=== PATIENT | female | born 1935 ===

== ENCOUNTER 2017-02-13 11:25 | Emergency (ER) | payer MEDICARE, BC ==
[2017-02-13 11:40] VITALS: BP 126/62
--- NOTE | 2017-02-13 12:09 | UC ---
Dizzy HPI HPI Summary: Spent most of yesterday resting because of feeling unwell, with nausea and lightheadness. This morning, had about 10+ minutes of quivering sensation in her chest, but no associated chest pain or shortness of breath. History of past ND 15 months ago, with previous hx of a fib. In July, had cardiac arrest in the ER following oral dose of flecainide; had CPR for 2 minutes. Within the past month or so, she has had an event monitor, and labs to check thyroid function, but she does not know the results. Not on a diuretic and does not have a hx of hypokalemia. Has felt weak and off balance since her cardiac arrest. She did not do rehab following this. Past history of vertigo, but has no diplopia or vision change. - History Of Current Complaint Chief Complaint: UCGeneralIllness Stated Complaint: DIZZY,NAUSEA,QUIVER FELING IN CHEST Time Seen by Provider: 02/13/17 11:41 Hx Obtained From: Patient, Family/Transportation Officer - here with her Onset/Duration: Gradual Onset, Lasting Hours - hours of dizziness and lightheadeness, Worse Since - This morning, had about 10 minutes of "quivering" in her heart. Timing: Minutes Severity Initially: Moderate Severity Currently: None Character: Lightheaded, Weak, Dizzy Aggravating Factor(s): Exertion, Position Change, Supine To Erect Alleviating Factor(s): Rest, Lying Down Associated Signs And Symptoms: Positive: Palpitations, Unsteady Gait - for the past 6 months - Risk Factors Cardiac Risk Factors: Hypertension, Prior ND CVA Risk Factor: Atrial Fibrillation - on NOAC - Allergies/Home Medications Allergies/Adverse Reactions: Allergies Allergy/AdvReac Type Severity Reaction Status Date / Time Sulfa Drugs Allergy Intermediate Hives Verified 02/13/17 11:31 Flecainide Allergy See Comment Verified 02/13/17 11:31 NITROGLYCERINE Allergy Severe SYNCOPE Uncoded 02/13/17 11:31 PMH/Surg Hx/FS Hx/Imm Hx Cardiovascular History: Cardiac Disease, Myocardial Infarction, Atrial Fibrillation - Surgical History Surgical History: Yes Surgery Procedure, Year, and Place: GALL BLADDER REMOVAL, APPENDECTOMY. Cardiac cath 10/2015 - Family History Known Family History: Positive: Hypertension - Social History Occupation: Retired Lives: With Family Alcohol Use: None Substance Use Type: None Smoking Status (MU): Never Smoked Tobacco Review of Systems Constitutional: Fatigue, Other - off balance at times Skin: Negative Eyes: Negative ENT: Negative Respiratory: Shortness Of Breath - only with climibin a hill, not new Cardiovascular: Palpitations, Other - mild edema of the ankles off and on, no increase. Gastrointestinal: Nausea, Other - stools normal Genitourinary: Negative Motor: Weakness - feels off balance x months. Neurovascular: Negative Musculoskeletal: Arthralgia - occasional use of acetaminophen for aches and pains. Neurological: Negative Psychological: Negative All Other Systems Reviewed And Are Negative: Yes Physical Exam Triage Information Reviewed: Yes Appearance: Ill-Appearing - looks fatigued and chronically unwell, but not out of breath. Speaks easily. Alert and oriented. Vital Signs: Initial Vital Signs Temp 97.7 F 02/13/17 11:33 Pulse 63 02/13/17 11:33 Resp 16 02/13/17 11:33 BP 126/62 02/13/17 11:33 Pulse Ox 96 02/13/17 11:33 Eyes: Positive: Conjunctiva Clear ENT: Positive: Pharynx normal Dental Exam: Normal Neck: Positive: Supple, Nontender, No Lymphadenopathy, Other: - no carotid bruit Respiratory: Positive: Lungs clear, Normal breath sounds Cardiovascular: Positive: RRR - bradycardic, No Murmur, Other: - trace edema of ankles. Abdomen Description: Positive: Nontender, No Organomegaly, Soft Musculoskeletal: Positive: Other: - no pronator drift. Gait is mildly wide based. Neurological Exam: Other - CNII-XII normal. Psychological Exam: Normal Skin Exam: Other - sun blister on lower lip, 4 mm Diagnostics - EKG Cardiac Rate: Bradycardia Cardiac Rhythm: Sinus: Normal Ectopy: None ST Segment: Normal - possible LVH Dizzy Course/Dx - Course Course Of Treatment: observational. Will go to [facility] if symptoms continue today, or follow up with Dr. Still tomorrow. - Differential Dx/Diagnosis Differential Diagnosis/HQI/PQRI: Benign Paroxysmal Positional Vertigo, CVA, Dysrhythmia, Transient Ischemic Attack Provider Diagnoses: possibly symptomatic bradycardia Discharge - Discharge Plan Condition: Stable Disposition: HOME Patient Education Materials: Bradycardia (ED) Referrals: Violette Still MD [Primary Care Provider] - Additional Instructions: Your EKG today shows a normal sinus rhythm with a slow rate. There is no evidence of recurrent atrial fibrillation. As discussed, it is most likely that your medications might need adjusting, and you need to confirm that the results of your most recent thyroid testing in December were normal. I suggest a follow up with Dr. Still and your photoengraver to explore this further. You might benefit from physical therapy for strengthening.
== END 2017-02-13 12:24 | disposition home or self-care (01) ==
LOC: UCCORT 11:25
DX: R00.1 Bradycardia, unspecified (principal); R42 Dizziness and giddiness; R00.2 Palpitations; R26.81 Unsteadiness on feet; I25.2 Old myocardial infarction; I48.91 Unspecified atrial fibrillation; Z86.74 Personal history of sudden cardiac arrest; I10 Essential (primary) hypertension; Z88.2 Allergy status to sulfonamides
CPT/HCPCS: 93005; 99211; G0463

== ENCOUNTER 2017-10-08 13:11 | Emergency (ER) | payer MEDICARE, BC ==
[2017-10-08 14:05] VITALS: BP 108/65
--- NOTE | 2017-10-08 14:24 | UC ---
Respiratory Complaint HPI - HPI Summary HPI Summary: patient to urgent care with c/o cough and chest congestion for a few days---no fever chills or shortness of breath - History of Current Complaint Chief Complaint: UCRespiratory Stated Complaint: COUGH, CONGESTION Time Seen by Provider: 10/08/17 14:14 Hx Obtained From: Patient ?: No Onset/Duration: Gradual Onset, Lasting Days, Still Present Timing: Constant Severity Initially: Mild Severity Currently: Mild Pain Intensity: 0 Character: Cough: Productive - pink tinge in sputum (on xarelto) Aggravating Factors: Nothing Alleviating Factors: Nothing - Allergies/Home Medications Allergies/Adverse Reactions: Allergies Allergy/AdvReac Type Severity Reaction Status Date / Time flecainide Allergy Severe See Comment Verified 10/08/17 14:11 nitroglycerin Allergy Severe See Comment Verified 10/08/17 14:11 Sulfa (Sulfonamide Allergy Hives Verified 10/08/17 14:11 Antibiotics) Home Medications: Home Medications Acetaminophen 325 mg PO ONCE PRN 10/08/17 [History Confirmed 10/08/17] PMH/Surg Hx/FS Hx/Imm Hx Previously Healthy: No Cardiovascular History: Myocardial Infarction, Atrial Fibrillation - Surgical History Surgical History: Yes Surgery Procedure, Year, and Place: GALL BLADDER REMOVAL, APPENDECTOMY. Cardiac cath 10/2016 - Family History Known Family History: Positive: Hypertension - Social History Occupation: Retired Lives: With Family Alcohol Use: None Substance Use Type: None Smoking Status (MU): Never Smoked Tobacco Review of Systems Constitutional: Negative Skin: Negative Eyes: Negative ENT: Negative Respiratory: Cough Cardiovascular: Negative Gastrointestinal: Negative Genitourinary: Negative Motor: Negative Neurovascular: Negative Musculoskeletal: Negative Neurological: Negative Psychological: Negative Is Patient Immunocompromised?: No All Other Systems Reviewed And Are Negative: Yes Physical Exam Triage Information Reviewed: Yes Appearance: Well-Appearing, No Pain Distress, Well-Nourished Vital Signs: Initial Vital Signs Temp 99 F 10/08/17 13:58 Pulse 63 10/08/17 13:58 Resp 16 10/08/17 13:58 BP 108/65 10/08/17 13:58 Pulse Ox 97 10/08/17 13:58 Vital Signs Reviewed: Yes Eye Exam: Normal Eyes: Positive: Conjunctiva Clear ENT Exam: Normal ENT: Positive: Normal ENT inspection, Hearing grossly normal, Pharynx normal, TMs normal, Uvula midline. Negative: Nasal congestion, Trismus, Muffled voice, Hoarse voice, Sinus tenderness Dental Exam: Normal Neck exam: Normal Neck: Positive: Supple, Nontender, No Lymphadenopathy Respiratory Exam: Normal Respiratory: Positive: Chest non-tender, Lungs clear, No respiratory distress, No accessory muscle use, Wheezing - some expiratory Cardiovascular Exam: Normal Cardiovascular: Positive: RRR, No Murmur, Pulses Normal, Brisk Capillary Refill Musculoskeletal Exam: Normal Musculoskeletal: Positive: Strength Intact, ROM Intact, No Edema Neurological Exam: Normal Neurological: Positive: Alert, Muscle Tone Normal Psychological Exam: Normal Skin Exam: Normal UC Diagnostic Evaluation - Laboratory O2 Sat by Pulse Oximetry: 97 - Radiology Xray Interpretation: No Acute Changes Radiology Interpretation Completed By: Radiologist Respiratory Course/Dx - Course Course Of Treatment: increase fluids, cool mist humidification albuterol , tessalon follow with pcp - Differential Dx/Diagnosis Provider Diagnoses: Acute bronchospastic cough Discharge - Sign-Out/Discharge Documenting (check all that apply): Discharge - Discharge Plan Condition: Stable Disposition: HOME Prescriptions: Albuterol HFA INHALER* [Ventolin HFA Inhaler*] 2 puff INH Q4H PRN #1 mdi PRN Reason: cough Benzonatate CAP* [Tessalon 100 MG CAP*] 100 mg PO TID PRN #30 cap PRN Reason: cough Patient Education Materials: Bronchospasm (ED), Wheezing (ED) Referrals: Vioeltte Still MD [Primary Care Provider] - 3 Days - Billing Disposition and Condition Condition: STABLE Disposition: HOME
--- NOTE | 2017-10-08 14:55 | RAD ---
INDICATION: Productive cough with pink sputum. Cardiac disease. COMPARISON: December 31, 2010 TECHNIQUE: Dual energy PA and routine lateral views of the chest were obtained. REPORT: Elevated lung volumes with increased AP thoracic diameter. Mild prominence of the interstitial markings without significant change. No alveolar consolidation, focal pulmonary lesion, pleural effusion, pneumothorax. Negative for cardiomegaly. Unremarkable central pulmonary vasculature. Moderately tortuous thoracic aorta. Gallbladder fossa level surgical clips. Bone density appears decreased throughout. Increased thoracic kyphosis. No visualized fractures. IMPRESSION: Stigmata of probable obstructive lung disease. No acute cardiopulmonary process evident.
== END 2017-10-08 15:50 | disposition home or self-care (01) ==
LOC: UCCORT 13:11
DX: R05 Cough (principal); Z88.2 Allergy status to sulfonamides; Z88.8 Allergy status to other drugs, medicaments and biological substances
CPT/HCPCS: 71046; 99212; G0463

== ENCOUNTER 2018-02-22 18:18 | Emergency (ER) | payer MEDICARE, BC ==
--- OUTSIDE RECORDS SUMMARY | 2018-02-22 18:31 | XMS REPORT ---
:1935 External Reference #:[id number] Author Organization [facility] Address [address] [place] [address] Phone [phone] Care Team Providers Name Role Phone Violette Still MD Care Team Information Freight Shipping Agent Unavailable Violette Still MD Primary Care Physician Unavailable Payers Type Date Identification Numbers Payment Provider Subscriber Medicare Primary Effective: Policy Number: Medicare Emmy Garcia 2000 [id number] PayID: [id number] [address] [place] [address] [facility] Part B Policy Number: [id number] [facility] Emmy Garcia PayID: [id number] [address] [address] [place] [address] Problems Description No Information Family History Date Family Member(s) Problem(s) Comments General Heart Disease General Hypertension General Cancer General Stroke Father Hypertension Mother Heart Disease Mother Hypertension Mother Stroke Social History Type Date Description Comments Marital Status Lives With Occupation Retired Cigarette Use Never Smoked Cigarettes Cigars Never Smoked Cigars Pipe Never Smoked A Pipe Smokeless Tobacco Never Used Smokeless Tobacco ETOH Use Denies alcohol use Smoking Patient has never smoked Allergies, Adverse Reactions, Alerts Date Description Reaction Status Severity Comments 11/05/2014 Sulfa Antibiotics Urticaria active 11/05/2014 Nitroglycerin Shock active 02/21/2018 Flecainide active Medications Medication Date Status Form Strength Qnty SIG Indications Ordering Provider Clotrimazole Active Solution 1% 1bottl 4 drops Boy 015 e to left [place], ear M.D. twice a day for 14 days Caduet Active Tablets 5-40mg 1 po Ring, 000 qday MD Violette Cyanocobalamin Active Solution 1000mcg/ML Im Ring, 000 monthly MD Violette . Toprol XL Active Tablets ER 100mg 1 po Ring, 000 24HR qday MD Violette Vasotec Active Tablets 10mg 1 po Ring, 000 qday MD Violette Xarelto Active Tablets 20mg 1 by Unknown 000 mouth every day Aspirin Ec Hx Tablets DR 325mg 1 by Unknown 000 - mouth every 018 day Vital Signs Date Vital Result Comment 02/21/2018 Height 64 inches 5'4" Weight 154.00 lb BP Systolic Sitting 116 mmHg BP Diastolic Sitting 68 mmHg Respiratory Rate 17 /min Pain Level 0 BMI (Body Mass Index) 26.4 kg/m2 02/04/2015 Heart Rate 74 /min BP Systolic Sitting 124 mmHg BP Diastolic Sitting 80 mmHg 01/28/2015 Heart Rate 78 /min BP Systolic Sitting 124 mmHg BP Diastolic Sitting 86 mmHg 11/05/2014 Weight 152.00 lb Heart Rate 78 /min BP Systolic Sitting 124 mmHg BP Diastolic Sitting 80 mmHg Results Description No Information Procedures Date CPT Code Description Status 11/05/2014 46087 Remove Impacted Cerumen Completed Encounters Type Date Location Provider CPT E/M Dx Office Visit 02/21/2018 4:[facility] M[facility] [id number] H61.23 [facility] [place] Office Visit 02/04/2015 3:15p [facility] M.D[facility] [id number] 380.15 [facility] [place] Office Visit 01/28/2015 2:45p [facility] M.D[facility] [id number] 380.15 [facility] [place] Plan of Care 02/21/2018 - [facility] M.D.H61.23 Impacted cerumen, bilateralFollow up:. ( Follow up)
[2018-02-22 19:09] VITALS: BP 120/66
[2018-02-22] MEDS ORDERED: Tetan/Diph/Pertus SYR(Tdap)* 0.5 ML SYR(BOOSTRIX) use SYR IM ONE (19:16)
[2018-02-22] MEDS ORDERED: Gelfoam 12-7 ADSORBABL SPONGE* 1 EA SPONGE ONE (19:47)
[2018-02-22] MEDS ORDERED: Gelfoam 100 COMPRESSED* SPONGE TOPICAL ONE (19:58)
--- NOTE | 2018-02-22 20:20 | UC ---
Laceration HPI - HPI Summary HPI Summary: Pt presents with c/o laceration to right thumb. Pt was using knife at home and cut right distal thumb. Pt is on xarelto and states bleeding has slowed down with pressure bandage. Pt unsure last tetanus - History Of Current Complaint Chief Complaint: UCLaceration Stated Complaint: RIGHT THUMB LACERATION Time Seen by Provider: 02/22/18 19:41 Hx Obtained From: Patient Laceration Location: Finger - right thumb Mechanism Of Injury: Sharp Trauma Onset/Duration: Sudden Onset, Still Present Severity: Mild Pain Intensity: 1 Pain Scale Used: 0-10 Numeric Aggravating Factors: Position, Movement Related History: Dominant Hand Right - Allergies/Home Medications Allergies/Adverse Reactions: Allergies Allergy/AdvReac Type Severity Reaction Status Date / Time flecainide Allergy Severe See Comment Verified 02/24/18 10:17 nitroglycerin Allergy Severe See Comment Verified 02/24/18 10:17 Sulfa (Sulfonamide Allergy Hives Verified 02/24/18 10:17 Antibiotics) PMH/Surg Hx/FS Hx/Imm Hx Previously Healthy: Yes - Surgical History Surgical History: Yes Surgery Procedure, Year, and Place: GALL BLADDER REMOVAL, APPENDECTOMY. Cardiac cath 10/2016 - Family History Known Family History: Positive: Hypertension - Social History Occupation: Retired Lives: With Family Alcohol Use: None Substance Use Type: None Smoking Status (MU): Never Smoked Tobacco Have You Smoked in the Last Year: No - Immunization History Most Recent Tetanus Shot: unknown Review of Systems Constitutional: Negative Skin: Other - laceration distal right thumb. Eyes: Negative ENT: Negative Respiratory: Negative Cardiovascular: Negative Gastrointestinal: Negative Genitourinary: Negative Motor: Negative Neurovascular: Negative Musculoskeletal: Myalgia - at laceration site Neurological: Negative Psychological: Negative Is Patient Immunocompromised?: No All Other Systems Reviewed And Are Negative: Yes Physical Exam Triage Information Reviewed: Yes Appearance: Well-Appearing Vital Signs: Initial Vital Signs Temp 98.2 F 02/22/18 19:01 Pulse 74 02/22/18 19:01 Resp 15 02/22/18 19:01 BP 120/66 02/22/18 19:01 Pulse Ox 98 02/22/18 19:01 Vital Signs Reviewed: Yes Eye Exam: Normal ENT: Positive: Hearing grossly normal Neck exam: Normal Respiratory: Positive: No respiratory distress Musculoskeletal Exam: Normal Neurological Exam: Normal Psychological Exam: Normal Skin Exam: Other - skin avulsion to right distal thumb. Laceration Repair - Laceration Repair 1 Procedure Summary: gel foam and tube dressing placed on wound Description: Irregular Modified For Repair: No Irrigation With Pressure Irrigation Device: Yes Closure Method: Single Layer Laceration Course/Dx - Differential Dx - Laceration/Wound Differental Diagnoses: Avulsion, Laceration Provider Diagnoses: skin avulsion right distal thumb Discharge - Sign-Out/Discharge Documenting (check all that apply): Patient Departure - Discharge Plan Condition: Stable Disposition: HOME Patient Education Materials: Skin Avulsion (ED), Laceration Without Closure (ED ) Referrals: Violette Still MD [Primary Care Provider] - If Needed Additional Instructions: Please leave dressing on for a minimum of 5 days. Change dressing if it gets soiled or wet. If wound becomes, more painful, red, swollen, purulent discharge red streaking fever, chills- please seek care for immediate wound evaluation. Per institutional requirements, I have reviewed the chart, however, I was not consulted specifically or made aware of this patient by the above midlevel provider. I did not personally evaluate, interact with , or disposition this patient. - Billing Disposition and Condition Condition: STABLE Disposition: Home
== END 2018-02-22 20:12 | disposition home or self-care (01) ==
LOC: UCCORT 18:18
DX: S61.011A Laceration without foreign body of right thumb without damage to nail, initial encounter (principal); W26.0XXA Contact with knife, initial encounter; Y93.9 Activity, unspecified; Y92.009 Unspecified place in unspecified non-institutional (private) residence as the place of occurrence of the external cause; Z23 Encounter for immunization; Z79.01 Long term (current) use of anticoagulants; Z88.1 Allergy status to other antibiotic agents; Z88.8 Allergy status to other drugs, medicaments and biological substances
CPT/HCPCS: 90715; 99213; A9270-GY; G0463

== ENCOUNTER 2018-02-24 09:52 | Emergency (ER) | payer MEDICARE, BC ==
[2018-02-24 10:25] VITALS: BP 111/60
--- NOTE | 2018-02-24 10:41 | RAD ---
Indication: Deep laceration to the RIGHT thumb 3 days ago with persistent pain. Comparison: No relevant prior exams available on the [facility] PACS for comparison. Technique: AP, lateral, and oblique views RIGHT thumb. REPORT AND IMPRESSION: #. Soft tissue contour irregularity at the radial tip of the thumb likely corresponding with the laceration site. Soft tissue swelling greatest over the distal and distal volar aspects. No conspicuous foreign body evident. #. Negative for fracture or malalignment. Bone density appears decreased throughout. #. 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
--- NOTE | 2018-02-24 10:46 | UC ---
HPI Wound/Suture Re-check - HPI Summary HPI Summary: Pt returns to clinic for wound recheck. Pt was seen here on 02/22/18 for laceration to right thumb. Pt states that thumb "felt fine" until las night. Now c/o right thumb pain that is throbbing and below the laceration. - History Of Current Complaint Chief Complaint: UCUpperExtremity Stated Complaint: RIGHT THUMB PAIN Time Seen by Provider: 02/24/18 10:15 Hx Obtained From: Patient Onset/Duration: Sudden Onset, Lasting Hours Severity: Mild Pain Intensity: 3 - Allergies/Home Medications Allergies/Adverse Reactions: Allergies Allergy/AdvReac Type Severity Reaction Status Date / Time flecainide Allergy Severe See Comment Verified 02/24/18 10:17 nitroglycerin Allergy Severe See Comment Verified 02/24/18 10:17 Sulfa (Sulfonamide Allergy Hives Verified 02/24/18 10:17 Antibiotics) PMH/Surg Hx/FS Hx/Imm Hx Previously Healthy: Yes Endocrine History: Dyslipidemia Cardiovascular History: Cardiac Disease, Hypertension - Surgical History Surgical History: Yes Surgery Procedure, Year, and Place: GALL BLADDER REMOVAL, APPENDECTOMY. Cardiac cath 10/2016 - Family History Known Family History: Positive: Hypertension - Social History Occupation: Retired Lives: With Family Alcohol Use: None Substance Use Type: None Smoking Status (MU): Never Smoked Tobacco Have You Smoked in the Last Year: No - Immunization History Most Recent Tetanus Shot: 02/22/18 Review of Systems Constitutional: Negative Skin: Other - laceration to right thumb, gel foam intact, Eyes: Negative ENT: Negative Respiratory: Negative Cardiovascular: Negative Gastrointestinal: Negative Genitourinary: Negative Motor: Negative Neurovascular: Negative Musculoskeletal: Myalgia - right thumb Neurological: Negative Psychological: Negative Is Patient Immunocompromised?: No All Other Systems Reviewed And Are Negative: Yes Physical Exam Triage Information Reviewed: Yes Appearance: Well-Appearing Vital Signs: Initial Vital Signs Temp 97.7 F 02/24/18 10:17 Pulse 60 02/24/18 10:17 Resp 16 02/24/18 10:17 BP 111/60 02/24/18 10:17 Pulse Ox 98 02/24/18 10:17 Vital Signs Reviewed: Yes Eye Exam: Normal ENT: Positive: Hearing grossly normal Dental Exam: Normal Neck exam: Normal Respiratory: Positive: No respiratory distress Musculoskeletal Exam: Normal Musculoskeletal: Positive: Strength Intact, ROM Intact, No Edema Neurological Exam: Normal Psychological Exam: Normal Skin Exam: Other - after bandage remove, pt reported that thumb felt better. gel foam intact, cap refil less than 1 second, warm, pink, not erythematous. no drainage no swelling. Diagnostics - Radiology No standard instances Radiology Interpretation Completed By: Radiologist - REPORT AND IMPRESSION: #. Soft tissue contour irregularity at the radial tip of the thumb likely corresponding with the laceration site. Soft tissue swelling greatest over the distal and distal volar aspects. No conspicuous foreign body evident. #. Negative for fracture or malalignment. Bone density appears decreased throughout. #. 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 Course/Dx - Differential Dx - Laceration/Wound Differential Diagnoses: Healing Wound Provider Diagnoses: Healing wound. right thumb pain. dressing change Discharge - Sign-Out/Discharge Documenting (check all that apply): Patient Departure - Discharge Plan Condition: Stable Disposition: HOME Prescriptions: Cephalexin CAP* [Keflex 500 CAP*] 500 mg PO Q12H #6 cap Patient Education Materials: Acute Wound Care (ED) Referrals: Violette Still MD [Primary Care Provider] - If Needed - Billing Disposition and Condition Condition: STABLE Disposition: Home
== END 2018-02-24 11:09 | disposition home or self-care (01) ==
LOC: UCCORT 09:52
DX: Z51.89 Encounter for other specified aftercare (principal); S61.011D Laceration without foreign body of right thumb without damage to nail, subsequent encounter; X58.XXXD Exposure to other specified factors, subsequent encounter; Y92.9 Unspecified place or not applicable; I10 Essential (primary) hypertension; Z88.1 Allergy status to other antibiotic agents; Z88.8 Allergy status to other drugs, medicaments and biological substances
CPT/HCPCS: 99212; G0463